=== PATIENT | male | born 1965 | race Caucasian/White ===

== ENCOUNTER 2021-04-01 12:45 | Emergency (ER) | payer OTHER, MEDICAID ==
[~2021-04-01] VITALS: Ht 172.7 cm; Wt 90.7 kg
[2021-04-01 12:47] VITALS: BP 110/58
--- NOTE | 2021-04-01 12:47 | NUR ---
PT TAKEN TO ER BED 11 FOR BEDSIDE TRIAGE.
--- NOTE | 2021-04-01 13:06 | NUR ---
55 Y/O MALE BIBA FROM HOME ([facility]), PT CAREGIVER NOTICED PT HAS HAVING DIFFICULTY BREATHING AFTER COUGHING AND STATES DESATURATION TO 93% ON RA. PT FOLLOWS COMMANDS, BUT NONVERBAL, NORMAL FOR BASELINE [facility] 11. PT HAS AKA ON R SIDE AND R EYE DEFICIT, BASELINE. ON ARRIVAL PT 99% ON RA, BED LOCKED SIDE RAILS UP SEIZURE PRECAUTIONS IN PLACE, BED IN LOWEST POSITION. PMH: AUTISM, HYPOTHYROID, EPILEPSY, SEIZURE, HTN NKA RX: SEE LIST IN CHART
--- NOTE | 2021-04-01 13:45 | NUR ---
XRAY BEDSIDE WITH PT
[2021-04-01 14:58] VITALS: BP 112/56
--- NOTE | 2021-04-01 15:01 | NUR ---
PT RESTING BEDSIDE WITH SISTER. VITALS STABLE. BED IN LOWEST POSITION WITH BEDRAILS X2 UP WITH PADDING. WILL CONTUINUE TO MONITOR
--- NOTE | 2021-04-01 16:05 | NUR ---
Spoke with Nicole from [facility] for pending d/c. [facility] to be arranging transportation.
[2021-04-01] MEDS ORDERED: CEPH-588 PO (16:22)
--- NOTE | 2021-04-01 16:25 | NUR ---
SPOKE WITH JUDITH FROM [facility]. GAVE REPORT ON PT STATUS. WAITING FOR TRANSPORATION ETA 15 MIN
== END 2021-04-01 16:25 | disposition home or self-care (01) ==
LOC: MED 12:45
DX: R22.2 Localized swelling, mass and lump, trunk (principal); I10 Essential (primary) hypertension; E03.9 Hypothyroidism, unspecified; D64.9 Anemia, unspecified; F84.0 Autistic disorder; Z89.611 Acquired absence of right leg above knee
CPT/HCPCS: 71045; 99283